=== PATIENT | male | born 1990 | race Two or more races ===

== ENCOUNTER 2019-09-08 10:00 | Emergency (ER) | payer OTHER ==
[~2019-09-08] VITALS: Ht 190.5 cm; Wt 120.5 kg
[2019-09-08 10:04] VITALS: BP 123/82
[2019-09-08] MEDS ORDERED: CefTRIAXone SODIUM 1 GM/VIAL IM ONE (10:45)
[2019-09-08] MEDS ORDERED: AZITHROMYCIN 250 MG TABLET PO ONE (10:45)
[2019-09-08] MEDS ORDERED: LIDOCAINE/PF 1% 2 ML VIAL IM ONE (11:00)
== END 2019-09-08 11:13 | disposition home or self-care (01) ==
LOC: EMS 10:05
DX: N34.2 Other urethritis (principal)
CPT/HCPCS: 87491; 87591; 96372; 99283; J0696; J3490